=== PATIENT | female | born 1930 | race Caucasian/White ===

== ENCOUNTER 2017-08-12 13:28 | Inpatient (IN) | payer MEDICARE, MEDICAID ==
--- NOTE | 2017-08-12 14:05 | ED Physician Chart ---
ED Chief Complaint/HPI - Patient Information Date Seen:: 08/12/17 Time Seen:: 13:40 Chief Complaint:: Fever History of Present Illness:: onset x 2 days of fever, cough, and congestion; no H/As, neck pain, C/P, SOB, Abd. Pain, A/N/V/D/C, chills, or urinary s/s Allergies:: Allergies Allergy/AdvReac Type Severity Reaction Status Date / Time No Known Allergies Allergy Verified 08/12/17 13:39 Vitals:: Vital Signs - 8 hr 08/12/17 13:39 Temp 99.0 F HR 85 RR 22 BP 121/54 O2 Sat % 87 Historian:: Patient, EMS Review:: Nurse's Note Reviewed, EMS run form Reviewed, Transfer documents Reviewed ED Review of Systems - Review of Systems General/Constitutional: Fever, No chills, No weight loss, No weakness, No diaphoresis, No edema, No loss of appetite Skin: No skin lesions, No rash, No bruising Head: No headache, No light-headedness Eyes: No loss of vision, No pain, No diplopia ENT: No earache, Nasal drainage, No sore throat, No tinnitus Neck: No neck pain, No swelling, No thyromegaly, No stiffness, No mass noted Cardio Vascular: No chest pain, No palpitations, No PND, No orthopnea, No edema Pulmonary: No SOB, Cough, No sputum, No wheezing GI: No nausea, No vomiting, No diarrhea, No pain, No melena, No hematochezia, No constipation, No hematemesis G/U: No dysuria, No frequency, No hematuria Musculoskeletal: No bone or joint pain, No back pain, No muscle pain Endocrine: No polyuria, No polydipsia Psychiatric: No prior psych history, No depression, No anxiety, No suicidal ideation Hematopoietic: No bruising, No lymphadenopathy Allergic/Immuno: No urticaria, No angioedema Neurological: No syncope, No focal symptoms, No weakness, No paresthesia, No headache, No seizure, No dizziness, No confusion, No vertigo ED Past Medical History - Past Medical History Obtainable: Yes Past Medical History: HTN, DM, Asthma/COPD, Dyslipidemia Family History: Diabetes Melitus, HTN Social History: Non Smoker, No Alcohol, No Drug Use, Single, Care Facility Surgical History: None Psychiatricy History: None Medication: Reviewed Family Medical History - Family Member Mother History Unknown: Yes ED Physical Exam - Physical Examination General/Constitutional: Awake, Well-developed, well-nourished, Alert, No distress, GCS 15, Non-toxic appearing, Ambulatory Head: Atraumatic Eyes: Lids, conjuctiva normal, PERRL, EOMI Skin: Nl inspection, No rash, No skin lesions, No ecchymosis, Well hydrated, No lymphadenopathy ENMT: External ears, nose nl, TM canals nl, Nasal exam nl, Lips, teeth, gums nl , Oropharynx nl, Tonsils nl Neck: Nontender, Full ROM w/o pain, No JVD, No nuchal rigidity, No bruit, No mass, No stridor Respiratory: Nl effort/Exclusion Other Respiratory comments:: Lungs: + rales and Rhonchi Cardio Vascular: RRR, No murmur, gallop, rubs, NL S1 S2, Carotid/Femoral/Distal pulses equal bilaterally GI: No tenderness/rebounding/guarding, No organomegaly, No hernia, Normal BS's, Nondistended, No mass/bruits, No McBurney tenderness : No CVA tenderness Extremities: No tenderness or effusion, Full ROM, normal strength in all extremities, No edema, Normal digits & nails Neuro/Psych: Alert/oriented, DTR's symmetric, Normal sensory exam, Normal motor strength, Judgement/insight normal, Mood normal, Normal gait, No focal deficits Misc: Normal back, No paraspinal tenderness ED Labs/Radiology/EKG Results - Lab Results Comments:: WBC: 15.0; H/H: 10/30.8; Glucose: 193; U/A: + Pyuria - Radiology Results Comments:: CM; NAD - EKG Interpretations EKG Time:: 14:11 Rate & Rhythm: 81; NSR Comments:: RBBB; LAHB; non-specific st-t changes ED Septic Shock - . Is Septic Shock (SBP<90, OR Lactate>4 mmol\L) present?: No - <6hrs of presentation: Vital Signs: Vital Signs - 8 hr 08/12/17 13:39 Temp 99.0 F HR 85 RR 22 BP 121/54 O2 Sat % 87 ED Reassessment (Disposition) - Reassessment Reassessment Condition:: Improved - Diagnosis Diagnosis:: Dx: Leukocytosis; Anemia; Hyperglycemia; UTI; Urosepsis - Aftercare/Follow up Instructions Aftercare/Follow-Up Instructions:: Counseled pt regarding lab results/diagnosis & need follow up, Counseled pt & family regarding lab results/diagnosis & need follow up - Patient Disposition Discharge/Transfer:: Acute Care w/in this hosp Accepting Physician:: Dr. Ferrera Time Called:: 1800 Time Responded:: 18:30 Admitted to:: Med/Surg Spoke to:: Dr. Ferrera Admitting Medical Physician:: Dr. Ferrera Condition at Disposition:: Stable, Improved
[2017-08-12] MEDS ORDERED: Sodium Chloride 0.9% 1,000 ML IV ONE (14:07)
[2017-08-12 14:37] LABS: % BASOPHILS 0.4 % (0.0-2.0); % EOSINOPHILS 0.1 % (0.0-5.0); % MONOCYTES 10.4 % (2.0-10.0); % NEUTROPHILS 83.1 % (40.0-80.0); HEMATOCRIT 30.8 % (41.0-60); MEAN CELL VOLUME 94.7 fl (81-100); MEAN CORPUSCULAR HEMOGLOBIN 30.9 pg (27.0-31.0); MEAN CORPUSCULAR HGB CONC 32.6 pg (28.0-36.0); MEAN PLATELET VOLUME 8.1 fl; NEUTROPHILE ABSOLUTE 12.4 Th/cmm (1.8-8.0); PLATELET COUNT 302 Th/cmm (150-400); RED BLOOD COUNT 3.25 Mil/cmm (3.80-5.20); RED CELL DISTRIBUTION WIDTH 15.9 % (11.5-20.0)
--- NOTE | 2017-08-12 14:39 | Diagnostic Imaging Report ---
Portable chest x-ray HISTORY: Pain The heart is enlarged. No focal pulmonary processes. No hilar or mediastinal abnormalities. Arthritic changes noted about the shoulder regions. IMPRESSION: 1. Cardiomegaly 2. No acute focal pulmonary processes
[2017-08-12 14:42] LABS: INR 1.3 (0.5-1.4); PROTHROMBIN TIME (TEST) 13.7 SECONDS (9.5-11.5)
[2017-08-12 14:50] LABS: ALB/GLOB RATIO 1.1 (1.0-1.8); ALKALINE PHOSPHATASE 88 U/L (34-104); ANION GAP 9.9 (7.0-16.0); BILIRUBIN,TOTAL 0.7 mg/dL (0.3-1.0); BUN - UREA NITROGEN 19 mg/dL (7-25); CALCIUM SERUM 8.8 mg/dL (8.6-10.3); CARBON DIOXIDE 31.2 mEq/L (21.0-31.0); CHLORIDE 98 mEq/L (98-107); CHOLESTEROL 183 mg/dL (<200); GLUCOSE 193 mg/dL (70-105); POTASSIUM SERUM 4.1 mEq/L (3.5-5.1); SGOT 19 U/L (13-39); SGPT/ALT 18 U/L (7-52); SODIUM SERUM 135 mEq/L (136-145); TRIGLYCERIDES 114 mg/dL (<150)
[2017-08-12] MEDS ORDERED: Levofloxacin 500mg/100mL 500 MG/100 ML BAG IV ONE ×2 (14:52→15:48)
[2017-08-12 18:41] LABS: URINE BILIRUBIN NEGATIVE (NEGATIVE); URINE BLOOD LARGE (NEGATIVE); URINE GLUCOSE (UA) NEGATIVE (NEGATIVE); URINE KETONE NEGATIVE (NEGATIVE); URINE PROTEIN TRACE mg/dL (NEGATIVE); URINE UROBILINOGEN 0.2 E.U./dL (0.2 - 1.0)
[2017-08-12 18:45] LABS: URINE COLOR YELLOW
[2017-08-12 19:01] LABS: URINE BACTERIA MANY /hpf (NONE SEEN); URINE EPITHELIAL CELLS MANY /lpf (FEW)
[2017-08-12] MEDS: D5-0.45NS 1,000 ML IV SCH (22:31)
[2017-08-12] MEDS: cefTRIAXone 1 GM in Sodium Chloride 0.9% 50 ML IV SCH (22:51)
[2017-08-12] MEDS ORDERED: Pneumococcal Vaccine 0.5 mL Vial IM ONE (23:22)
[2017-08-13] MEDS ORDERED: Gentamicin 80 mg/2mL Vial ONE (01:44)
[2017-08-13] MEDS ORDERED: [UNRECOGNIZED DRUG - OTHER] EACH EYE PRN (10:42)
[2017-08-13] MEDS ORDERED: Magnesium Hydroxide (MOM) 30 mL UDC PO PRN (10:42)
[2017-08-13] MEDS ORDERED: [UNRECOGNIZED DRUG - OTHER] EACH EYE SCH (10:45)
[2017-08-13] MEDS ORDERED: Albuterol/Ipratropium Neb 3 ML AERS HHN PRN (10:47)
[2017-08-13] MEDS ORDERED: Polyvinyl Alcohol Ophth Soln 15 mL Bottle EACH EYE PRN (11:20)
--- NOTE | 2017-08-13 12:31 | History & Physical ---
ADMIT DATE: 08/12/2017 IDENTIFYING DATA: An 86-year-old female. CHIEF COMPLAINT: Sent to Emergency Room for evaluation of fever, cough, congestion and increasing lethargy. HISTORY OF PRESENT ILLNESS: An 86-year-old resident of long-term with history of type 2 diabetes, hypertension, hyperlipidemia, history of hard of hearing, advanced DJD, urinary incontinence, noticed by nursing staff that the patient having recurrent symptoms of cough, congestion. The patient was treated in long-term with symptomatic therapy as well as on antibiotic. The patient was noted to have increasing lethargy and weakness as well. The patient's long-term staff reported that this is not her usual behavior. The patient was sent [facility] at [facility] for evaluation. The patient was reported to have a leukocytosis with urinary tract infection. The patient was also noted to have extensive wheezing as well. In the view of her advanced age being a diabetic outpatient treatment failure along with patient was not improving, the patient was advised to be admitted for further treatment. The patient's son at bedside who helped me with the translation. PAST MEDICAL HISTORY: Remarkable for: 1. Diabetes. 2. Hypertension. 3. Hyperlipidemia. 4. DJD. 5. Urinary incontinence. 6. Hard of hearing. MEDICATIONS: Reviewed and reconciled appropriately. ALLERGIES: The patient is not allergic to medication. SOCIAL HISTORY: She is a resident of long-term. No alcohol or drug use. FAMILY MEDICAL HISTORY: Remarkable for diabetes and hypertension. REVIEW OF SYSTEMS: The patient denies any headache, denies any blurred vision, double vision. Denies any chest pain. Does have shortness of breath with exertion. Does have some cough and congestion. Denies any abdominal pain. Denies any nausea, vomiting, hematemesis. Does have dysuria. Denies any seizure or syncopal episode. Does have difficulty in walking. PHYSICAL EXAMINATION: GENERAL: The patient is alert, awake, oriented, lying in the bed. VITAL SIGNS: Temperature 98.7, pulse 83, respiratory rate is 18, blood pressure is 120/50. HEENT: Normocephalic, atraumatic. Extraocular muscles are intact. Tongue was pink and coated. Oropharynx congested. Nasal mucosa congested. NECK: Supple. No JVD. No hepatojugular reflex. No lymphadenopathy, thyromegaly or carotid bruit. HEART: Both heart sounds are regular. Grade 2/6 systolic murmur noted. CHEST AND LUNGS: Equal in expansion with expiratory wheezing. ABDOMEN: Soft. No guarding. No rigidity. Bowel sounds are present. No palpable mass. EXTREMITIES: No edema. Diffuse osteoarthritic changes noted. NEUROLOGIC: Alert, awake, follows commands. Moving upper and lower extremities without any difficulty. AVAILABLE DIAGNOSTIC DATA: White count of 15 and platelet count of 302. BUN and creatinine is reported 19 and 1.0. Potassium is 4.1, sodium 135 with a bicarb of 31.2, anion gap was 9.9, glycohemoglobin A1c was also done was 6.2. Total albumin is 3.6. B-type natriuretic peptide 111. Urine is cloudy, nitrites positive, large blood is positive, moderate leuk esterase, rbc 10-25, wbc 10-25, many bacteria were reported. Chest x-ray is no infiltrate. CLINICAL IMPRESSION: 1. Complicated urinary tract infection in this diabetic patient. 2. Acute bronchitis with bronchospasm. 3. Lethargy secondary to complicated UTI and bronchitis. 4. Diabetes 5. Hypertension. 6. Normocytic normochromic anemia, most likely secondary to chronic inflammation. 7. DJD. 8. Hard of hearing. PLAN: 1. Admit this patient to Med/Surg floor. 2. IV antibiotic. 3. Blood cultures. 4. Infectious Disease consultation. 5. Nebulizer treatment. 6. Diabetes management. 7. Appropriate home medicine reconciliation. 8. Fall precaution. 9. Follow up lab. 10. Follow consult recommendation. 11. Care plan reviewed and discussed with staff. JOB# [id number]
[2017-08-13] MEDS: Polyvinyl Alcohol Ophth Soln 15 mL Bottle EACH EYE SCH ×3 (13:03→20:54)
[2017-08-13] MEDS: Albuterol/Ipratropium Neb 3 ML AERS HHN SCH ×2 (13:51→19:42)
[2017-08-13] MEDS: D5-0.45NS 1,000 ML IV SCH (16:33)
[2017-08-13] MEDS ORDERED: Non-Formulary Item 1 EA (Metformin Hcl [Fortamet] 1,000 MG) PO SCH (17:00)
[2017-08-13] MEDS ORDERED: [UNRECOGNIZED DRUG - OTHER] PO SCH (17:00)
[2017-08-13] MEDS ORDERED: Albuterol/Ipratropium Neb 3 ML AERS HHN ONE (19:27)
[2017-08-13] MEDS: cefTRIAXone 1 GM in Sodium Chloride 0.9% 50 ML IV SCH (23:09)
[2017-08-14] MEDS: Polyvinyl Alcohol Ophth Soln 15 mL Bottle EACH EYE SCH ×6 (00:15→20:08)
[2017-08-14] MEDS ORDERED: Albuterol/Ipratropium Neb 3 ML AERS HHN ONE ×2 (00:16→07:35)
[2017-08-14] MEDS: Albuterol/Ipratropium Neb 3 ML AERS HHN SCH ×4 (00:21→19:26)
[2017-08-14 06:27] LABS: % BASOPHILS 1.1 % (0.0-2.0); % EOSINOPHILS 0.5 % (0.0-5.0); % LYMPHOCYTES 13.2 % (20.0-50.0); % MONOCYTES 12.3 % (2.0-10.0); % NEUTROPHILS 72.9 % (40.0-80.0); HEMATOCRIT 28.3 % (41.0-60); HEMOGLOBIN 9.3 gm/dL (12-16); MEAN CELL VOLUME 95.5 fl (81-100); MEAN CORPUSCULAR HEMOGLOBIN 31.3 pg (27.0-31.0); MEAN CORPUSCULAR HGB CONC 32.8 pg (28.0-36.0); MEAN PLATELET VOLUME 8.9 fl; NEUTROPHILE ABSOLUTE 5.7 Th/cmm (1.8-8.0); PLATELET COUNT 259 Th/cmm (150-400); RED BLOOD COUNT 2.97 Mil/cmm (3.80-5.20); RED CELL DISTRIBUTION WIDTH 16.3 % (11.5-20.0)
[2017-08-14 06:30] LABS: WHITE BLOOD COUNT 7.8 Th/cmm (4.8-10.8)
[2017-08-14 06:35] LABS: ALKALINE PHOSPHATASE 74 U/L (34-104); ANION GAP 10.2 (7.0-16.0); BILIRUBIN,TOTAL 0.4 mg/dL (0.3-1.0); BUN - UREA NITROGEN 17 mg/dL (7-25); CALCIUM SERUM 8.4 mg/dL (8.6-10.3); CARBON DIOXIDE 29.5 mEq/L (21.0-31.0); CHLORIDE 101 mEq/L (98-107); GLUCOSE 75 mg/dL (70-105); MAGNESIUM 1.7 mg/dL (1.9-2.7); POTASSIUM SERUM 3.7 mEq/L (3.5-5.1); SGOT 16 U/L (13-39); SGPT/ALT 15 U/L (7-52); SODIUM SERUM 137 mEq/L (136-145)
[2017-08-14] MEDS: INSULIN ASPART SLIDING SCALE 100 UNITS/ML UNIT SUBQ SCH (08:32)
[2017-08-14] MEDS: Multivitamin w/ Minerals Tab PO SCH (08:59)
[2017-08-14] MEDS ORDERED: ZINC OXIDE 30 GM TP SCH (09:00)
[2017-08-14] MEDS: Aspirin 81mg Chewable Tab PO SCH (09:01)
[2017-08-14] MEDS ORDERED: Probiotic Screen MC PRN (11:29)
--- NOTE | 2017-08-14 14:53 | Consultation ---
Consult Note - Consult Note Service Date: 08/14/17 Referring Physician: Kevin Ferrera Consult Note: PHYSICIAN Consultation Note: Date of Admission: 08/12/17 Purpose of Consultation: uti sepsis, Chief Complaint: Patient SANDRA BRAGG was admitted to location Medical/Surgical Unit I with LEUKOCYTOSIS,UTI. History of Present Illness: 86 year olf female with history of DM2, HTN, DJD, dementia, admitted to the hosital for chest congestion and cough, she failed symptomatic treatment. On initial evaluation, her temperature was 99 degree F and WBC Count was 15,000. USA showed pyuria and bacteriuria. Rocephin was started and ID consult was called for antibiotic management. Past Medical History: Allergies Allergy/AdvReac Type Severity Reaction Status Date / Time No Known Allergies Allergy Verified 08/12/17 13:39 Vital Signs Temp 97.7 F 08/14/17 12:11 Pulse 78 08/14/17 12:34 Resp 16 08/14/17 12:34 BP 130/54 08/14/17 12:11 Pulse Ox 94 08/14/17 12:34 Intake & Output 08/13/17 08/14/17 08/14/17 18:59 06:59 18:59 Intake Total 508.833 353 Balance 508.833 353 Weight (lbs) 77.7 kg Intake: Intake, IV Amount 508.833 153 D5-0.45NS 1,000 ml @ 70 508.833 mls/hr IV .[id number] [facility] Rx #:[id number] Gentamicin 120 mg In 103 Sodium Chloride 0.9% 100 ml @ 100 mls/hr IV Q24H [facility] Rx#:[id number] cefTRIAXone 1 gm In 50 Sodium Chloride 0.9% 50 ml @ 100 mls/hr IV Q24HR [facility] Rx#:[id number] Oral 200 Other: # Voids 1 # Bowel Movements 0 Laboratory Results - last 24 hr 08/13/17 08/14/17 08/14/17 17:50 00:16 05:35 WBC 7.8 D RBC 2.97 L Hgb 9.3 L Hct 28.3 L MCV 95.5 MCH 31.3 H MCHC Differential 32.8 RDW 16.3 Plt Count 259 MPV 8.9 Neutrophils % 72.9 Lymphocytes % 13.2 L Monocytes % 12.3 H Eosinophils % 0.5 Basophils % 1.1 Sodium Potassium Chloride Carbon Dioxide Anion Gap BUN Creatinine Est GFR ( Amer) Est GFR (Non-Af Amer) BUN/Creatinine Ratio Glucose POC Glucose 167 H 90 Calcium Magnesium Total Bilirubin AST ALT Alkaline Phosphatase Total Protein Albumin Globulin Albumin/Globulin Ratio 08/14/17 08/14/17 08/14/17 05:35 06:27 08:09 WBC RBC Hgb Hct MCV MCH MCHC Differential RDW Plt Count MPV Neutrophils % Lymphocytes % Monocytes % Eosinophils % Basophils % Sodium 137 Potassium 3.7 Chloride 101 Carbon Dioxide 29.5 Anion Gap 10.2 BUN 17 Creatinine 1.0 Est GFR ( Amer) TNP Est GFR (Non-Af Amer) TNP BUN/Creatinine Ratio 17.0 Glucose 75 POC Glucose 74 111 H Calcium 8.4 L Magnesium 1.7 L Total Bilirubin 0.4 AST 16 ALT 15 Alkaline Phosphatase 74 Total Protein 6.5 Albumin 3.2 L Globulin 3.3 Albumin/Globulin Ratio 1.0 Home Medication Medication Instructions Recorded Type Acetaminophen [Tylenol Extra 1,000 mg PO Q6HR PRN 08/12/17 History Strength] Acetaminophen [Tylenol] 650 mg PO Q4HR PRN 08/12/17 History Albuterol/Ipratropium Neb [Duoneb 3 ml HHN Q4HR PRN 08/12/17 History Neb] Albuterol/Ipratropium Neb [Duoneb 3 ml HHN Q8H 08/12/17 History Neb] Areds 2 Formula 1 tab PO BID 08/12/17 History Aspirin [Aspirin Chewable] 81 mg PO DAILY 08/12/17 History Benazepril [Lotensin*] 10 mg PO DAILY 08/12/17 History Bisacodyl [Dulcolax 10 Mg Supp] 10 mg RC Q72H PRN 08/12/17 History Docusate Sodium [Colace] 100 mg PO HS PRN 08/12/17 History Furosemide [Lasix] 20 mg PO DAILY 08/12/17 History Glipizide 5 mg PO BID 08/12/17 History Insulin Aspart Sliding Scale 0 units SUBQ DAILY 08/12/17 History [NovoLOG INSULIN SLIDING SCALE] Magnesium Hydroxide [Milk of 30 ml PO BID PRN 08/12/17 History Magnesia] Meclizine [Antivert*] 25 mg PO BID 08/12/17 History Meloxicam 15 mg PO DAILY 08/12/17 History Metformin HCl [Fortamet] 1,000 mg PO BID 08/12/17 History Multivitamin w/ Minerals 1 tab PO DAILY 08/12/17 History [Theragran M] Oxybutynin Chloride [Ditropan*] 5 mg PO HS 08/12/17 History Refresh Artificial Tears 1 drop EACH EYE Q4H 08/12/17 History Refresh Artificial Tears 1 drop EACH EYE PRN PRN 08/12/17 History Robitussin Peak Cold Multi-Sys 10 ml PO BID 08/12/17 History Zinc Oxide 30 gm TP DAILY 08/12/17 History traMADol HCl [Ultram*] 50 mg PO Q6HR PRN 08/12/17 History Current Medications Generic Name Dose Route Start Last Admin Trade Name Freq PRN Reason Stop Dose Admin Acetaminophen 650 mg 08/13/17 10:42 Tylenol PO 10/12/17 10:41 Q4HR PRN FEVER >99.9 AND PAIN Albuterol/Ipratropium 3 ml 08/13/17 13:00 08/14/17 12:34 Duoneb [facility] 10/12/17 12:59 3 ml Q6HRT [facility] Administration Albuterol/Ipratropium 3 ml 08/13/17 10:47 Duoneb Neb [facility] 10/12/17 10:46 Q2HRT PRN Wheezing Artificial Tears 1 drop 08/13/17 12:00 08/14/17 12:52 Artificial Tears Ophth Soln EACH EYE 10/12/17 11:59 1 drop Q4HR [facility] Administration Artificial Tears 1 drop 08/13/17 11:20 Artificial Tears Ophth Soln EACH EYE 10/12/17 11:19 Q4HR PRN Dry Eye Aspirin 81 mg 08/14/17 09:00 08/14/17 09:01 Aspirin Chewable PO 10/13/17 08:59 81 mg DAILY [facility] Administration Benazepril HCl 10 mg 08/14/17 09:00 08/14/17 08:59 Lotensin PO 10/13/17 08:59 10 mg DAILY [facility] Administration Bisacodyl 10 mg 08/13/17 10:42 Dulcolax 10 Mg Supp RC 10/12/17 10:41 Q72H PRN BM MANAGEMENT Docusate Sodium 100 mg 08/13/17 10:42 Colace PO 10/12/17 10:41 HS PRN BM MANAGEMENT Furosemide 20 mg 08/14/17 09:00 08/14/17 09:01 Lasix PO 10/13/17 08:59 20 mg DAILY [facility] Administration Glipizide 5 mg 08/13/17 17:00 08/14/17 09:01 Glucotrol PO 10/12/17 16:59 5 mg BID [facility] Administration Ceftriaxone Sodium 1 gm/ 50 mls @ 100 mls/hr 08/12/17 23:00 08/14/17 03:06 Sodium Chloride IV 10/11/17 22:59 Infused Q24HR [facility] Infusion Gentamicin Sulfate 120 mg/ 103 mls @ 100 mls/hr 08/12/17 23:00 08/14/17 03:07 Sodium Chloride IV 10/11/17 22:59 Infused Q24H [facility] Infusion Insulin Aspart 0 units 08/14/17 09:00 08/14/17 08:32 Novolog Insulin Sliding Scale SUBQ 10/13/17 08:59 Not Given DAILY [facility] Protocol Lactobacillus Rhamnosus 1 each 08/15/17 09:00 Culturelle PO 10/14/17 08:59 DAILY [facility] Magnesium Hydroxide 30 ml 08/13/17 10:42 Milk Of Magnesia PO 10/12/17 10:41 BID PRN IF NO BM ON 3RD DAY Meclizine HCl 25 mg 08/13/17 17:00 08/14/17 09:01 Antivert PO 10/12/17 16:59 25 mg BID [facility] Administration Metformin HCl 1,000 mg 08/13/17 17:00 08/14/17 08:59 Glucophage PO 10/12/17 16:59 1,000 mg BID [facility] Administration Miscellaneous 1 ea 08/12/17 22:02 Gentamicin Iv Per Pharmacy 10/11/17 22:01 PRN PRN PROTOCOL Miscellaneous 1 ea 08/14/17 11:29 Probiotic Screen 10/13/17 11:28 PRN PRN PROTOCOL Oxybutynin Chloride 5 mg 08/13/17 21:00 08/13/17 20:54 Ditropan PO 10/12/17 20:59 5 mg HS [facility] Administration Tramadol HCl 50 mg 08/13/17 10:42 Ultram PO 10/12/17 10:41 Q6HR PRN Severe Pain Review of Systems: A 12 point ROS was reviewed with the pertinent positive and negatives noted in the HPI. Social History Smoking Status Never smoker Drug Use No Alcohol Use No Family Medical History Family Medical History Start: 08/12/17 22: 01 Freq: ONCE Status: Active Document 08/12/17 22:01 [facility] (Rec: 08/12/17 23:21 [facility]-[id number]) Family Medical History Mother History Unknown Yes Physical Exam: General: Comfortable, not in acute distress. HEENT: Head: Normocephalic atraumatic. Oral cavity: Moist, pink tongue. Eyes: Pallor is present. No icterus. Neck: Supple, no JVD, no use of accessory muscles. Cardio: S1 and S2 within normal metabolism. Respiratory: Vesicular breath sound. Fine crackles. Abdominal: Soft, nontender, nondistended bowel sounds present. Genital/Urinary: deferred. Extremities: No cyanosis, no clubbing, no edema. Neurological: Alert, awake. Follows the commands. Assessment: 1. UTI, pyelonephritis. Providencia. 2. Leukocytosis improved. 3. DM2 4. HTN. 5. DJD. 6. Bronchitis. Plan: Continue Rocephin. Check renal us. Signed, Homero Segal M.D. [id number]
[2017-08-14] MEDS: cefTRIAXone 1 GM in Sodium Chloride 0.9% 50 ML IV SCH (23:39)
[2017-08-15] MEDS: Albuterol/Ipratropium Neb 3 ML AERS HHN SCH ×4 (00:26→18:52)
[2017-08-15] MEDS: Polyvinyl Alcohol Ophth Soln 15 mL Bottle EACH EYE SCH ×7 (00:36→23:43)
[2017-08-15 03:00] LABS: % BASOPHILS 1.8 % (0.0-2.0); % EOSINOPHILS 1.1 % (0.0-5.0); % LYMPHOCYTES 18.3 % (20.0-50.0); % MONOCYTES 15.5 % (2.0-10.0); % NEUTROPHILS 63.3 % (40.0-80.0); HEMATOCRIT 26.9 % (41.0-60); MEAN CELL VOLUME 94.9 fl (81-100); MEAN CORPUSCULAR HEMOGLOBIN 31.6 pg (27.0-31.0); MEAN CORPUSCULAR HGB CONC 33.4 pg (28.0-36.0); NEUTROPHILE ABSOLUTE 4.6 Th/cmm (1.8-8.0); PLATELET COUNT 258 Th/cmm (150-400); RED BLOOD COUNT 2.84 Mil/cmm (3.80-5.20); RED CELL DISTRIBUTION WIDTH 16.1 % (11.5-20.0); WHITE BLOOD COUNT 7.2 Th/cmm (4.8-10.8)
[2017-08-15 03:27] LABS: ALKALINE PHOSPHATASE 98 U/L (34-104); ANION GAP 7.8 (7.0-16.0); BILIRUBIN,TOTAL 0.3 mg/dL (0.3-1.0); BUN - UREA NITROGEN 17 mg/dL (7-25); CALCIUM SERUM 8.7 mg/dL (8.6-10.3); CARBON DIOXIDE 31.9 mEq/L (21.0-31.0); CHLORIDE 103 mEq/L (98-107); GLUCOSE 72 mg/dL (70-105); POTASSIUM SERUM 4.7 mEq/L (3.5-5.1); SGOT 21 U/L (13-39); SGPT/ALT 17 U/L (7-52); SODIUM SERUM 138 mEq/L (136-145)
[2017-08-15] MEDS: Aspirin 81mg Chewable Tab PO SCH (09:36)
[2017-08-15] MEDS: Lactobacillus Rhamnosus 10 Billion CFU Capsule PO SCH (09:38)
[2017-08-15] MEDS: Multivitamin w/ Minerals Tab PO SCH (09:40)
[2017-08-15] MEDS: INSULIN ASPART SLIDING SCALE 100 UNITS/ML UNIT SUBQ SCH (09:48)
[2017-08-15] MEDS ORDERED: methylPREDNISolone SS 40 mg Vial IV ONE (14:56)
[2017-08-15] MEDS: cefTRIAXone 1 GM in Sodium Chloride 0.9% 50 ML IV SCH (22:39)
[2017-08-16] MEDS: Albuterol/Ipratropium Neb 3 ML AERS HHN SCH ×4 (00:40→19:23)
[2017-08-16] MEDS: Polyvinyl Alcohol Ophth Soln 15 mL Bottle EACH EYE SCH ×5 (04:00→20:00)
--- NOTE | 2017-08-16 08:57 | Diagnostic Imaging Report ---
Renal ultrasound HISTORY: Urinary tract infection. COMPARISON: None Technique: Sonography of the kidneys and urinary bladder was performed in multiple planes. FINDINGS: Exam is severely limited due to body habitus. The right kidney measures 7.6 x 3.6 x 3.6 cm. Assessment for focal lesions is limited on this exam. There appears to be right renal cysts the largest measuring 2.7 x 2.2 cm. No hydronephrosis. The left kidney measures 11.6 x 5.6 cm. The renal margins are well-defined, however, no evidence of focal lesions or hydronephrosis. The urinary bladder measures 206 mL's. The patient did not void and post void residual bladder volumes were not obtained. The urinary bladder wall measures 3 mm. Indeterminate echogenic foci are seen which appear to be anterior to the urinary bladder. IMPRESSION: Markedly limited exam due to body habitus. No evidence of hydronephrosis. Right renal lesions most suggestive of cysts. CT would further clarify. Mildly distended urinary bladder measuring 206 mL's. Note, patient refused to void and post residual bladder colunga were not obtained. Indeterminate echogenic foci anterior to the urinary bladder, possibly calcifications. If indicated CT would further clarify.
[2017-08-16] MEDS: Aspirin 81mg Chewable Tab PO SCH (10:20)
[2017-08-16] MEDS: Lactobacillus Rhamnosus 10 Billion CFU Capsule PO SCH (10:23)
[2017-08-16] MEDS: Multivitamin w/ Minerals Tab PO SCH (10:23)
[2017-08-16] MEDS: INSULIN ASPART SLIDING SCALE 100 UNITS/ML UNIT SUBQ SCH (10:49)
[2017-08-16] MEDS ORDERED: methylPREDNISolone SS 40 mg Vial IV SCH (13:00)
--- NOTE | 2017-08-16 16:16 | Infectious Disease Prog Note ---
Infectious Disease Subjective - Review of Systems Service Date: 08/16/17 Subjective: There isno new change, no fever. Infectious Disease Objective - Results Result Diagrams: 08/15/17 02:30 08/17/17 06:35 Recent Labs: Laboratory Last Values WBC 7.2 Th/cmm (4.8-10.8) 08/15/17 02:30 RBC 2.84 Mil/cmm (3.80-5.20) L 08/15/17 02:30 Hgb 9.0 gm/dL (12-16) L 08/15/17 02:30 Hct 26.9 % (41.0-60) L 08/15/17 02:30 MCV 94.9 fl (81-100) 08/15/17 02:30 MCH 31.6 pg (27.0-31.0) H 08/15/17 02:30 MCHC Differential 33.4 pg (28.0-36.0) 08/15/17 02:30 RDW 16.1 % (11.5-20.0) 08/15/17 02:30 Plt Count 258 Th/cmm (150-400) 08/15/17 02:30 MPV 9.0 fl 08/15/17 02:30 Neutrophils % 63.3 % (40.0-80.0) 08/15/17 02:30 Lymphocytes % 18.3 % (20.0-50.0) L 08/15/17 02:30 Monocytes % 15.5 % (2.0-10.0) H 08/15/17 02:30 Eosinophils % 1.1 % (0.0-5.0) 08/15/17 02:30 Basophils % 1.8 % (0.0-2.0) 08/15/17 02:30 PT 13.7 SECONDS (9.5-11.5) H 08/12/17 14:23 INR 1.30 (0.5-1.4) 08/12/17 14:23 PTT (Actin FS) 31.0 SECONDS (26.0-38.0) 08/12/17 14:23 Sodium 138 mEq/L (136-145) 08/15/17 02:30 Potassium 4.7 mEq/L (3.5-5.1) 08/15/17 02:30 Chloride 103 mEq/L (98-107) 08/15/17 02:30 Carbon Dioxide 31.9 mEq/L (21.0-31.0) H 08/15/17 02:30 Anion Gap 7.8 (7.0-16.0) 08/15/17 02:30 BUN 17 mg/dL (7-25) 08/15/17 02:30 Creatinine 1.0 mg/dL (0.6-1.2) 08/15/17 02:30 Est GFR ( Amer) TNP 08/15/17 02:30 Est GFR (Non-Af Amer) TNP 08/15/17 02:30 BUN/Creatinine Ratio 17.0 08/15/17 02:30 Glucose 72 mg/dL (70-105) 08/15/17 02:30 POC Glucose 157 MG/DL (70 - 105) H 08/16/17 10:18 Hemoglobin A1c % 6.2 % (4.0-6.0) H 08/12/17 14:23 Whole Bld Lactic Acid 1.43 mmol/L (0.60-1.99) 08/12/17 14:23 Calcium 8.7 mg/dL (8.6-10.3) 08/15/17 02:30 Magnesium 1.7 mg/dL (1.9-2.7) L 08/14/17 05:35 Total Bilirubin 0.3 mg/dL (0.3-1.0) 08/15/17 02:30 AST 21 U/L (13-39) 08/15/17 02:30 ALT 17 U/L (7-52) 08/15/17 02:30 Alkaline Phosphatase 98 U/L (34-104) 08/15/17 02:30 Creatine Kinase 58 U/L (30-223) 08/12/17 14:23 Troponin I 0.03 ng/mL (0.01-0.05) 08/12/17 14:23 B-Natriuretic Peptide 111.0 pg/mL (5.0-100.0) H 08/12/17 14:23 Total Protein 6.6 gm/dL (6.0-8.3) 08/15/17 02:30 Albumin 3.3 gm/dL (3.7-5.3) L 08/15/17 02:30 Globulin 3.3 gm/dL 08/15/17 02:30 Albumin/Globulin Ratio 1.0 (1.0-1.8) 08/15/17 02:30 Triglycerides 114 mg/dL (<150) 08/12/17 14:23 Cholesterol 183 mg/dL (<200) 08/12/17 14:23 LDL Cholesterol Direct 129 mg/dL (75-193) 08/12/17 14:23 HDL Cholesterol 43 mg/dL (23-92) 08/12/17 14:23 Urine Source MIDSTREAM 08/12/17 18:15 Urine Color YELLOW 08/12/17 18:15 Urine Clarity CLOUDY (CLEAR) H 08/12/17 18:15 Urine pH 6.0 (4.6 - 8.0) 08/12/17 18:15 Ur Specific [place] 1.010 (1.005-1.030) 08/12/17 18:15 Urine Protein TRACE mg/dL (NEGATIVE) 08/12/17 18:15 Urine Glucose (UA) NEGATIVE mg/dL (NEGATIVE) 08/12/17 18:15 Urine Ketones NEGATIVE mg/dL (NEGATIVE) 08/12/17 18:15 Urine Blood LARGE (NEGATIVE) H 08/12/17 18:15 Urine Nitrate POSITIVE (NEGATIVE) H 08/12/17 18:15 Urine Bilirubin NEGATIVE (NEGATIVE) 08/12/17 18:15 Urine Urobilinogen 0.2 E.U./dL (0.2 - 1.0) 08/12/17 18:15 Ur Leukocyte Esterase MODERATE (NEGATIVE) H 08/12/17 18:15 Urine RBC 10-25 /hpf (0-5) H 08/12/17 18:15 Urine WBC 10-25 /hpf (0-5) H 08/12/17 18:15 Ur Epithelial Cells MANY /lpf (FEW) 08/12/17 18:15 Urine Bacteria MANY /hpf (NONE SEEN) 08/12/17 18:15 Gentamicin Peak 6.4 ug/ml (4.0-8.0) 08/15/17 02:30 Gentamicin Trough 1.1 ug/ml (0.2-2.0) 08/15/17 00:30 - Physical Exam Vitals and I&O: Vital Signs Temp 97.9 F 08/16/17 12:00 Pulse 82 08/16/17 13:56 Resp 20 11/26/17 13:56 BP 157/47 08/16/17 12:00 Pulse Ox 94 08/16/17 13:56 Intake & Output 08/15/17 08/16/17 08/16/17 18:59 06:59 18:59 Intake Total 650 500 Output Total 1 Balance 650 499 Weight (lbs) 81.193 kg 81.193 kg Intake: Oral 650 500 Output: Stool 1 Other: # Voids 4 3 # Bowel Movements 1 1 Stool Characteristics Soft Soft Soft Brown Brown Brown Active Medications: Current Medications Acetaminophen (Tylenol) 650 mg PO Q4HR PRN PRN Reason: FEVER >99.9 AND PAIN Stop: 10/12/17 10:41 Albuterol/Ipratropium (Duoneb Neb) 3 ml HHN Q6HRT [facility] Stop: 10/12/17 12:59 Last Admin: 08/16/17 13:56 Dose: 3 ml Albuterol/Ipratropium (Duoneb Neb) 3 ml HHN Q2HRT PRN PRN Reason: Wheezing Stop: 10/12/17 10:46 Artificial Tears (Artificial Tears Ophth Soln) 1 drop EACH EYE Q4HR [facility] Stop: 10/12/17 11:59 Last Admin: 08/16/17 12:35 Dose: 1 drop Artificial Tears (Artificial Tears Ophth Soln) 1 drop EACH EYE Q4HR PRN PRN Reason: Dry Eye Stop: 10/12/17 11:19 Aspirin (Aspirin Chewable) 81 mg PO DAILY [facility] Stop: 10/13/17 08:59 Last Admin: 08/16/17 10:20 Dose: 81 mg Benazepril HCl (Lotensin) 10 mg PO DAILY [facility] Stop: 10/13/17 08:59 Last Admin: 08/16/17 10:20 Dose: 10 mg Bisacodyl (Dulcolax 10 Mg Supp) 10 mg RC Q72H PRN PRN Reason: BM MANAGEMENT Stop: 10/12/17 10:41 Docusate Sodium (Colace) 100 mg PO HS PRN PRN Reason: BM MANAGEMENT Stop: 10/12/17 10:41 Furosemide (Lasix) 20 mg PO DAILY [facility] Stop: 10/13/17 08:59 Last Admin: 08/16/17 10:22 Dose: 20 mg Glipizide (Glucotrol) 5 mg PO BID [facility] Stop: 10/12/17 16:59 Last Admin: 08/16/17 10:23 Dose: 5 mg Ceftriaxone Sodium 1 gm/ (Sodium Chloride) 50 mls @ 100 mls/hr IV Q24HR [facility] Stop: 10/11/17 22:59 Last Admin: 08/15/17 22:39 Dose: 100 mls/hr Gentamicin Sulfate 120 mg/ (Sodium Chloride) 103 mls @ 100 mls/hr IV Q24H [facility] Stop: 10/11/17 22:59 Last Admin: 08/15/17 22:40 Dose: 100 mls/hr Insulin Aspart (Novolog Insulin Sliding Scale) 0 units SUBQ DAILY [facility] PRN Reason: Protocol Stop: 10/13/17 08:59 Last Admin: 08/16/17 10:49 Dose: 2 units Lactobacillus Rhamnosus (Culturelle) 1 each PO DAILY [facility] Stop: 10/14/17 08:59 Last Admin: 08/16/17 10:23 Dose: 1 each Magnesium Hydroxide (Milk Of Magnesia) 30 ml PO BID PRN PRN Reason: IF NO BM ON 3RD DAY Stop: 10/12/17 10:41 Meclizine HCl (Antivert) 25 mg PO BID [facility] Stop: 10/12/17 16:59 Last Admin: 08/16/17 10:23 Dose: 25 mg Metformin HCl (Glucophage) 1,000 mg PO BID [facility] Stop: 10/12/17 16:59 Last Admin: 08/16/17 10:23 Dose: 1,000 mg Methylprednisolone Sodium Succinate (Solu-Medrol) 40 mg IV Q8HR [facility] Stop: 10/14/17 14:55 Last Admin: 08/16/17 12:35 Dose: 40 mg Miscellaneous (Gentamicin Iv Per Pharmacy) 1 ea PRN PRN PRN Reason: PROTOCOL Stop: 10/11/17 22:01 Miscellaneous (Probiotic Screen) 1 ea PRN PRN PRN Reason: PROTOCOL Stop: 10/13/17 11:28 Oxybutynin Chloride (Ditropan) 5 mg PO HS [facility] Stop: 10/12/17 20:59 Last Admin: 08/15/17 21:53 Dose: 5 mg Tramadol HCl (Ultram) 50 mg PO Q6HR PRN PRN Reason: Severe Pain Stop: 10/12/17 10:41 Last Admin: 08/14/17 23:39 Dose: 50 mg General: no acute distress, well developed, well nourished HEENT: atraumatic, normocephalic, PERRLA, EOMI Neck: supple, no thyromegaly, no lymphadenopathy Cardiovascular: S1S2, regular Lungs: clear to auscultation bilaterally, clear to percussion Abdomen: soft, no tender, no distended, no mass Extremities: no cyanosis, no clubbing, no edema Neurological: awake, alert, oriented Skin: intact Infectious Disease Assmt/Plan - Problem List Patient Problems: All Active Problems COUGH AND CONGESTION WITH FEVER (Acute) - Assessment Assessment: 1. UTI, pyelonephritis. Providencia. 2. Leukocytosis improved. 3. DM2 4. HTN. 5. DJD. 6. Bronchitis. Plan: - Plan Plan: Continue Rocephin, can be changed to augmentin po for 5 more days. Nutritional Asmnt/Malnutr-PDOC - Dietary Evaluation Malnutrition Findings (Please click <Entered> for more info): Nutritional Asmnt/Malnutrition Start: 08/13/17 12: 37 Text: Status: Complete Freq: Document 08/13/17 12:37 LCVERONICAG (Rec: 08/13/17 13:05 [email or web address]) Nutritional Asmnt/Malnutrition Patient General Information Nutritional Screening High Risk Consult Diagnosis leukocytosis, UTI, hyperglycemia, anemia Pertinent Medical Hx/Surgical Hx DM, HTN, asthma/COPD, dyslipidemia Subjective Information Consult received for high blood glucose. pt seen lying in bed, awake and talkative, somewhat confused, hard of hearing, only speaks Malay. Checked pt lunch tray, only consumed soup and coffee. Pt reported she was not hungry. Pt appeared overweight, no fat /muscle wasting noted. Current Diet Order/ Nutrition Support low sodium 2 gm, [facility] Pertinent Medications D5, colace, lasix, glucotrol, novolog, glucophage Pertinent Labs 08/12 Na 135L, Glu 193H, Alb 3 .6L, A1c 6.2H 08/13 POC 193H Nutritional Hx/Data Height 1.68 m Height (Calculated Centimeters) 167.6 Current Weight (lbs) 79.379 kg Weight (Calculated Kilograms) 79.4 Weight (Calculated Grams) 65157.7 [place] Body Weight 130 % [place] Body Weight 135 Body Mass Index (BMI) 28.2 Weight Status Overweight GI Symptoms GI Symptoms None Difficult in: None Usual diet at home regular [facility] fortified diet at [facility] Skin Integrity/Comment: intact Estimated Nutritional Goals BEE in Kcals: Using Current wt Calories/Kcals/Kg 25-27 Kcals Calculated 9735-0035 Protein: Using Current wt Protein g/k.8-1 Protein Calculated 64-80 Nutritional Problem 1. Problem Problem altered nutrition related lab values Etiology hx of DM Signs/Symptoms: Alb 3.6L, A1c 6.2H POC 193H Malnutrition Alert Protein-Calorie Malnutrition N/A Is there a minimum of two criteria No selected? Query Text:Check all the applicable criteria. A minimum of two criteria are recommended for diagnosis of either severe or non-severe malnutrition. Intervention/Recommendation Comments 1. continue with current diet as ordered 2. monitor PO intake, wt weekly, glucose and other nutrition related labs 3. adjust insulin as needed for optimal glycemic control 4. F/U as moderate risk in 3-5 days, 08/16-08/18 Expected Outcomes/Goals Expected Outcomes/Goals 1. PO intake to meet at least 75% of nutritional needs. 2. wt stability, skin to remain intact, labs to improve .
[2017-08-16] MEDS: methylPREDNISolone SS 40 mg Vial IV SCH (22:21)
[2017-08-16] MEDS: cefTRIAXone 1 GM in Sodium Chloride 0.9% 50 ML IV SCH (23:28)
[2017-08-17] MEDS: Albuterol/Ipratropium Neb 3 ML AERS HHN SCH ×3 (00:12→14:02)
[2017-08-17] MEDS: Polyvinyl Alcohol Ophth Soln 15 mL Bottle EACH EYE SCH ×4 (00:30→11:24)
[2017-08-17] MEDS: Lactobacillus Rhamnosus 10 Billion CFU Capsule PO SCH (08:34)
[2017-08-17] MEDS: Aspirin 81mg Chewable Tab PO SCH (08:34)
[2017-08-17] MEDS: Multivitamin w/ Minerals Tab PO SCH (08:35)
[2017-08-17] MEDS: methylPREDNISolone SS 40 mg Vial IV SCH (08:35)
[2017-08-17] MEDS: INSULIN ASPART SLIDING SCALE 100 UNITS/ML UNIT SUBQ SCH (08:42)
--- NOTE | 2017-08-17 12:05 | Infectious Disease Prog Note ---
Infectious Disease Subjective - Review of Systems Service Date: 08/17/17 Subjective: There is no new change, no fever. Infectious Disease Objective - Results Result Diagrams: 08/15/17 02:30 08/17/17 06:35 Recent Labs: Laboratory Last Values WBC 7.2 Th/cmm (4.8-10.8) 08/15/17 02:30 RBC 2.84 Mil/cmm (3.80-5.20) L 08/15/17 02:30 Hgb 9.0 gm/dL (12-16) L 08/15/17 02:30 Hct 26.9 % (41.0-60) L 08/15/17 02:30 MCV 94.9 fl (81-100) 08/15/17 02:30 MCH 31.6 pg (27.0-31.0) H 08/15/17 02:30 MCHC Differential 33.4 pg (28.0-36.0) 08/15/17 02:30 RDW 16.1 % (11.5-20.0) 08/15/17 02:30 Plt Count 258 Th/cmm (150-400) 08/15/17 02:30 MPV 9.0 fl 08/15/17 02:30 Neutrophils % 63.3 % (40.0-80.0) 08/15/17 02:30 Lymphocytes % 18.3 % (20.0-50.0) L 08/15/17 02:30 Monocytes % 15.5 % (2.0-10.0) H 08/15/17 02:30 Eosinophils % 1.1 % (0.0-5.0) 08/15/17 02:30 Basophils % 1.8 % (0.0-2.0) 08/15/17 02:30 PT 13.7 SECONDS (9.5-11.5) H 08/12/17 14:23 INR 1.30 (0.5-1.4) 08/12/17 14:23 PTT (Actin FS) 31.0 SECONDS (26.0-38.0) 08/12/17 14:23 Sodium 138 mEq/L (136-145) 08/15/17 02:30 Potassium 4.7 mEq/L (3.5-5.1) 08/15/17 02:30 Chloride 103 mEq/L (98-107) 08/15/17 02:30 Carbon Dioxide 31.9 mEq/L (21.0-31.0) H 08/15/17 02:30 Anion Gap 7.8 (7.0-16.0) 08/15/17 02:30 BUN 17 mg/dL (7-25) 08/15/17 02:30 Creatinine 0.9 mg/dL (0.6-1.2) 08/17/17 06:35 Est GFR ( Amer) TNP 08/15/17 02:30 Est GFR (Non-Af Amer) TNP 08/15/17 02:30 BUN/Creatinine Ratio 17.0 08/15/17 02:30 Glucose 72 mg/dL (70-105) 08/15/17 02:30 POC Glucose 75 MG/DL (70 - 105) 08/17/17 08:38 Hemoglobin A1c % 6.2 % (4.0-6.0) H 08/12/17 14:23 Whole Bld Lactic Acid 1.43 mmol/L (0.60-1.99) 08/12/17 14:23 Calcium 8.7 mg/dL (8.6-10.3) 08/15/17 02:30 Magnesium 1.7 mg/dL (1.9-2.7) L 08/14/17 05:35 Total Bilirubin 0.3 mg/dL (0.3-1.0) 08/15/17 02:30 AST 21 U/L (13-39) 08/15/17 02:30 ALT 17 U/L (7-52) 08/15/17 02:30 Alkaline Phosphatase 98 U/L (34-104) 08/15/17 02:30 Creatine Kinase 58 U/L (30-223) 08/12/17 14:23 Troponin I 0.03 ng/mL (0.01-0.05) 08/12/17 14:23 B-Natriuretic Peptide 111.0 pg/mL (5.0-100.0) H 08/12/17 14:23 Total Protein 6.6 gm/dL (6.0-8.3) 08/15/17 02:30 Albumin 3.3 gm/dL (3.7-5.3) L 08/15/17 02:30 Globulin 3.3 gm/dL 08/15/17 02:30 Albumin/Globulin Ratio 1.0 (1.0-1.8) 08/15/17 02:30 Triglycerides 114 mg/dL (<150) 08/12/17 14:23 Cholesterol 183 mg/dL (<200) 08/12/17 14:23 LDL Cholesterol Direct 129 mg/dL (75-193) 08/12/17 14:23 HDL Cholesterol 43 mg/dL (23-92) 08/12/17 14:23 Urine Source MIDSTREAM 08/12/17 18:15 Urine Color YELLOW 08/12/17 18:15 Urine Clarity CLOUDY (CLEAR) H 08/12/17 18:15 Urine pH 6.0 (4.6 - 8.0) 08/12/17 18:15 Ur Specific [place] 1.010 (1.005-1.030) 08/12/17 18:15 Urine Protein TRACE mg/dL (NEGATIVE) 08/12/17 18:15 Urine Glucose (UA) NEGATIVE mg/dL (NEGATIVE) 08/12/17 18:15 Urine Ketones NEGATIVE mg/dL (NEGATIVE) 08/12/17 18:15 Urine Blood LARGE (NEGATIVE) H 08/12/17 18:15 Urine Nitrate POSITIVE (NEGATIVE) H 08/12/17 18:15 Urine Bilirubin NEGATIVE (NEGATIVE) 08/12/17 18:15 Urine Urobilinogen 0.2 E.U./dL (0.2 - 1.0) 08/12/17 18:15 Ur Leukocyte Esterase MODERATE (NEGATIVE) H 08/12/17 18:15 Urine RBC 10-25 /hpf (0-5) H 08/12/17 18:15 Urine WBC 10-25 /hpf (0-5) H 08/12/17 18:15 Ur Epithelial Cells MANY /lpf (FEW) 08/12/17 18:15 Urine Bacteria MANY /hpf (NONE SEEN) 08/12/17 18:15 Gentamicin Peak 6.4 ug/ml (4.0-8.0) 08/15/17 02:30 Gentamicin Trough 1.1 ug/ml (0.2-2.0) 08/15/17 00:30 - Physical Exam Vitals and I&O: Vital Signs Temp 98 F 08/17/17 11:35 Pulse 85 08/17/17 11:35 Resp 20 08/17/17 11:35 BP 154/70 08/17/17 11:35 Pulse Ox 95 08/17/17 11:35 Intake & Output 08/16/17 08/17/17 08/17/17 18:59 06:59 18:59 Intake Total 550 Balance 550 Weight (lbs) 81.193 kg 76.884 kg Intake: Oral 550 Other: # Voids 3 # Bowel Movements 1 Stool Characteristics Soft Soft Brown Brown Active Medications: Current Medications Acetaminophen (Tylenol) 650 mg PO Q4HR PRN PRN Reason: FEVER >99.9 AND PAIN Stop: 10/12/17 10:41 Albuterol/Ipratropium (Duoneb Neb) 3 ml HHN Q6HRT [facility] Stop: 10/12/17 12:59 Last Admin: 08/17/17 07:56 Dose: 3 ml Albuterol/Ipratropium (Duoneb Neb) 3 ml HHN Q2HRT PRN PRN Reason: Wheezing Stop: 10/12/17 10:46 Artificial Tears (Artificial Tears Ophth Soln) 1 drop EACH EYE Q4HR [facility] Stop: 10/12/17 11:59 Last Admin: 08/17/17 11:24 Dose: 1 drop Artificial Tears (Artificial Tears Ophth Soln) 1 drop EACH EYE Q4HR PRN PRN Reason: Dry Eye Stop: 10/12/17 11:19 Aspirin (Aspirin Chewable) 81 mg PO DAILY [facility] Stop: 10/13/17 08:59 Last Admin: 08/17/17 08:34 Dose: 81 mg Benazepril HCl (Lotensin) 10 mg PO DAILY [facility] Stop: 10/13/17 08:59 Last Admin: 08/17/17 08:35 Dose: 10 mg Bisacodyl (Dulcolax 10 Mg Supp) 10 mg RC Q72H PRN PRN Reason: BM MANAGEMENT Stop: 10/12/17 10:41 Docusate Sodium (Colace) 100 mg PO HS PRN PRN Reason: BM MANAGEMENT Stop: 10/12/17 10:41 Furosemide (Lasix) 20 mg PO DAILY [facility] Stop: 10/13/17 08:59 Last Admin: 08/17/17 08:34 Dose: 20 mg Glipizide (Glucotrol) 5 mg PO BID [facility] Stop: 10/12/17 16:59 Last Admin: 08/17/17 08:45 Dose: Not Given Ceftriaxone Sodium 1 gm/ (Sodium Chloride) 50 mls @ 100 mls/hr IV Q24HR [facility] Stop: 10/11/17 22:59 Last Admin: 08/16/17 23:28 Dose: 100 mls/hr Insulin Aspart (Novolog Insulin Sliding Scale) 0 units SUBQ DAILY [facility] PRN Reason: Protocol Stop: 10/13/17 08:59 Last Admin: 08/17/17 08:42 Dose: Not Given Lactobacillus Rhamnosus (Culturelle) 1 each PO DAILY [facility] Stop: 10/14/17 08:59 Last Admin: 08/17/17 08:34 Dose: 1 each Magnesium Hydroxide (Milk Of Magnesia) 30 ml PO BID PRN PRN Reason: IF NO BM ON 3RD DAY Stop: 10/12/17 10:41 Meclizine HCl (Antivert) 25 mg PO BID [facility] Stop: 10/12/17 16:59 Last Admin: 08/17/17 08:34 Dose: 25 mg Metformin HCl (Glucophage) 1,000 mg PO BID [facility] Stop: 10/12/17 16:59 Last Admin: 08/17/17 08:40 Dose: Not Given Methylprednisolone Sodium Succinate (Solu-Medrol) 40 mg IV Q12HR [facility] Stop: 10/15/17 20:59 Last Admin: 08/17/17 08:35 Dose: 40 mg Miscellaneous (Probiotic Screen) 1 ea MC PRN PRN PRN Reason: PROTOCOL Stop: 10/13/17 11:28 Oxybutynin Chloride (Ditropan) 5 mg PO HS [facility] Stop: 10/12/17 20:59 Last Admin: 08/16/17 23:28 Dose: 5 mg Tramadol HCl (Ultram) 50 mg PO Q6HR PRN PRN Reason: Severe Pain Stop: 10/12/17 10:41 Last Admin: 08/14/17 23:39 Dose: 50 mg General: no acute distress, well developed, well nourished HEENT: atraumatic, normocephalic, PERRLA, EOMI Neck: supple, no thyromegaly Cardiovascular: S1S2, regular Lungs: clear to auscultation bilaterally, clear to percussion Abdomen: soft, no tender, no distended Extremities: no cyanosis, no clubbing Neurological: awake, alert, oriented Skin: intact Infectious Disease Assmt/Plan - Problem List Patient Problems: All Active Problems COUGH AND CONGESTION WITH FEVER (Acute) - Assessment Assessment: 1. UTI, pyelonephritis. Providencia. 2. Leukocytosis improved. 3. DM2 4. HTN. 5. DJD. 6. Bronchitis. - Plan Plan: Continue Rocephin, can be changed to augmentin po for 4 more days. Nutritional Asmnt/Malnutr-PDOC - Dietary Evaluation Malnutrition Findings (Please click <Entered> for more info): Nutritional Asmnt/Malnutrition Start: 08/13/17 12: 37 Text: Status: Complete Freq: Document 08/13/17 12:37 TATUM (Rec: 08/13/17 13:05 TATUM [email or web address]) Nutritional Asmnt/Malnutrition Patient General Information Nutritional Screening High Risk Consult Diagnosis leukocytosis, UTI, hyperglycemia, anemia Pertinent Medical Hx/Surgical Hx DM, HTN, asthma/COPD, dyslipidemia Subjective Information Consult received for high blood glucose. pt seen lying in bed, awake and talkative, somewhat confused, hard of hearing, only speaks Beninese. Checked pt lunch tray, only consumed soup and coffee. Pt reported she was not hungry. Pt appeared overweight, no fat /muscle wasting noted. Current Diet Order/ Nutrition Support low sodium 2 gm, [facility] Pertinent Medications D5, colace, lasix, glucotrol, novolog, glucophage Pertinent Labs 08/12 Na 135L, Glu 193H, Alb 3 .6L, A1c 6.2H 08/13 POC 193H Nutritional Hx/Data Height 1.68 m Height (Calculated Centimeters) 167.6 Current Weight (lbs) 79.379 kg Weight (Calculated Kilograms) 79.4 Weight (Calculated Grams) 85061.7 [place] Body Weight 130 % [place] Body Weight 135 Body Mass Index (BMI) 28.2 Weight Status Overweight GI Symptoms GI Symptoms None Difficult in: None Usual diet at [facility] Skin Integrity/Comment: intact Estimated Nutritional Goals BEE in Kcals: Using Current wt Calories/Kcals/Kg 25-27 Kcals Calculated 9052-1869 Protein: Using Current wt Protein g/k.8-1 Protein Calculated 64-80 Nutritional Problem 1. Problem Problem altered nutrition related lab values Etiology hx of DM Signs/Symptoms: Alb 3.6L, A1c 6.2H POC 193H Malnutrition Alert Protein-Calorie Malnutrition N/A Is there a minimum of two criteria No selected? Query Text:Check all the applicable criteria. A minimum of two criteria are recommended for diagnosis of either severe or non-severe malnutrition. Intervention/Recommendation Comments 1. continue with current diet as ordered 2. monitor PO intake, wt weekly, glucose and other nutrition related labs 3. adjust insulin as needed for optimal glycemic control 4. F/U as moderate risk in 3-5 days, 08/16-08/18 Expected Outcomes/Goals Expected Outcomes/Goals 1. PO intake to meet at least 75% of nutritional needs. 2. wt stability, skin to remain intact, labs to improve .
--- NOTE | 2017-08-17 20:10 | Discharge Summary ---
DATE OF DISCHARGE: 08/17/2017 PRINCIPAL DIAGNOSES: 1. Polymicrobial urinary tract infection, complicated type. 2. Bronchospasm with bronchitis. 3. Diabetes mellitus. 4. Hypertension. 5. Altered mental status secondary to encephalopathy. 6. Hypertension. 7. Normocytic normochromic anemia. 8. Diffuse degenerative joint disease. 9. Debility. BRIEF STATEMENT FOR THE REASON FOR ADMISSION: The patient is a intermediate resident, has multiple medical problems noted by nursing staff at intermediate that the patient was having a fever, cough, chills, shortness of breath, and altered mental status. The patient was evaluated in the Emergency Room and subsequently admitted. Please refer to my dictated medical H and P for further information. HOSPITAL COURSE: The patient was admitted to Med/Surg floor, IV antibiotic, blood cultures. Infectious Disease consultation was requested. Nebulizer treatment was given. Appropriate home medicine reconciliated. Diabetes management also initiated. The patient's son was informed of the patient's condition, diagnosis, and treatment plan. During the stay in the hospital, the patient continues to wheeze excessively, which required IV Solu-Medrol as well. Blood cultures were negative, but urine cultures did grow Proteus mirabilis and E. coli, which did require appropriate antibiotic adjustment. The patient continues to wheeze, which required hospitalizations to be extended until the patient improved. Today on 08/17/2017, the patient had a significant improvement, so decision is made that the patient should take p.o. prednisone for 5 more days and the patient can receive additional antibiotic at intermediate in the form of p.o. antibiotic. The patient is discharged back to [facility] where the patient will be followed by myself and my nurse practitioner. At the time of discharge, all of her meds were reconciliated. JOB# [id number]
== END 2017-08-17 14:40 | disposition home or self-care (01) | DRG 871 ==
LOC: ER 13:28 → MSI 20:30
PROVIDERS: ADMIT Internal Medicine; ATTEND Internal Medicine
DX: A41.9 Sepsis, unspecified organism (principal); G93.40 Encephalopathy, unspecified; E11.65 Type 2 diabetes mellitus with hyperglycemia; D64.9 Anemia, unspecified; J44.9 Chronic obstructive pulmonary disease, unspecified; N12 Tubulo-interstitial nephritis, not specified as acute or chronic; J20.9 Acute bronchitis, unspecified; B96.4 Proteus (mirabilis) (morganii) as the cause of diseases classified elsewhere; B96.89 Other specified bacterial agents as the cause of diseases classified elsewhere; I10 Essential (primary) hypertension; M19.90 Unspecified osteoarthritis, unspecified site; B96.20 Unspecified Escherichia coli [E. coli] as the cause of diseases classified elsewhere; E78.5 Hyperlipidemia, unspecified; Z83.3 Family history of diabetes mellitus; Z82.49 Family history of ischemic heart disease and other diseases of the circulatory system; Z79.4 Long term (current) use of insulin; Z79.82 Long term (current) use of aspirin
CPT/HCPCS: 36415-UA; 71010-TC; 76770-TC; 80053-TC; 80061-TC; 80170-TC; 81001-TC; 82550-TC; 82565-TC; 82948-90; 83036-90; 83605; 83735-TC; 83880-TC; 84484-TC; 85007-TC; 85025-TC; 85027-TC; 85610-TC; 85730-TC; 87086-90; 93005; 94640; 94760; 97530; J0696; J1580; J1815; J1956; J2920; Z7610